=== PATIENT | male | born 1965 | race Caucasian/White ===

== ENCOUNTER 2022-07-27 21:17 | Emergency (ER) | payer BC, OTHER ==
[2022-07-27] MEDS ORDERED: XYLOCAINE 1% HCL 20 ML MDV ONE (21:31)
[2022-07-27 21:45] VITALS: BP 152/84; PULSE 81
[2022-07-27 21:47] VITALS: O2SAT 96
--- NOTE | 2022-07-27 21:47 | ERPHSYRPT ---
- History of Present Illness Time Seen by Provider: 07/27/22 21:17 Source: patient Exam Limitations: no limitations Physician History: 57-year-old right-handed dominant male presented in the ER with chief complaint of laceration right index finger while fixing copper tubing at home. Complaining of dull aching to sharp mild to moderate pain with movement. There was bleeding initially but stopped with applying pressure. No numbness tingling or difficulty movements at interphalangeal joint. Timing/Duration: other ([employer]) Quality: painful Severity: mild Location: hands Possible Causes: other Associated Symptoms: denies symptoms Allergies/Adverse Reactions: No Known Drug Allergies Allergy (Verified 07/27/22 21:33) Home Medications: Adalimumab [Humira] 40 mg SQ WEEKLY 05/16/14 [History] metHOTREXate sodium [Trexall] 30 mg PO WEEKLY 05/16/14 [History] - Review of Systems Constitutional: No Symptoms Eyes: No Symptoms Respiratory: No Symptoms Cardiac: No Symptoms Musculoskeletal: Injury Skin: Skin Lesions Neurological: No Symptoms Psychological: No Symptoms Endocrine: No Symptoms Hematologic/Lymphatic: No Symptoms - Past Medical History Pertinent Past Medical History: Yes Neurological History: No Pertinent History ENT History: No Pertinent History Cardiac History: No Pertinent History Respiratory History: No Pertinent History Endocrine Medical History: No Pertinent History Musculoskeletal History: Rheumatoid Arthritis, Other (FX L FEMUR) GI Medical History: No Pertinent History History: Other (KIDNEY STONE) Psycho-Social History: No Pertinent History Male Reproductive Disorders: No Pertinent History Other Medical History: rheumatoid arthritis - Past Surgical History Past Surgical History: Yes ( ABOVE,KIDNEY STONE,L FEMUR ) - Social History Smoking Status: Never smoker Exposure to second hand smoke: No Drug Use: none Patient Lives Alone: No - Physical Exam General Appearance: no apparent distress, alert Eye Exam: PERRL/EOMI Ears, Nose, Throat Exam: normal ENT inspection Neck Exam: normal inspection, full range of motion Respiratory Exam: lungs clear Cardiovascular Exam: regular rate/rhythm, normal heart sounds Extremity Exam: other (2.5 cm oblique laceration right index proximal interphalangeal joint area. Intact extension, abduction, abduction at index. Cap refill less than 3 seconds.) Neurologic Exam: alert, oriented x 3, cooperative Skin Exam: normal color SpO2 Interpretation: normal SpO2: 96 O2 Delivery: Room Air Procedures - Laceration/Wound Repair Right Finger Time of Procedure: 21:45 Wound Location: Right, hand Wound Length (cm): 2.5 Wound's Depth, Shape: into muscle Wound Explored: clean Irrigated: Yes Hibiclens Prep: Yes Anesthesia: 1% Lidocaine Volume Anesthetic (ccs): 3 Wound Repaired With: sutures Suture Size/Type: 4-0, nylon Number of Sutures: 4 Layer Closure?: No Sterile Dressing Applied?: Yes Splint Applied?: Yes Type of Splint Applied: Aluminum Ordered Tests: Medication Summary Discontinued Medications Generic Name Dose Route Start Last Admin Trade Name Sonido PRN Reason Stop Dose Admin Lidocaine HCl Confirm 07/27/22 21:31 Lidocaine Hcl 1% 20 Ml Mdv 20 Ml Ml Administered 07/27/22 21:32 Dose 10 ml .ROUTE .Riskclick ONE - Progress Progress: improved Progress Note: 07/27/22 21:46 Laceration was repaired. Intact range of motion. No bony tenderness. Outpatient follow-up. Counseled pt/family regarding: diagnosis, need for follow-up - Departure Departure Disposition: Home Clinical Impression: Finger laceration Condition: Stable Critical Care Time: No Referrals: JOSE MONTOYA [Primary Care Provider] - Follow Up with PCP/3 days Instructions: Laceration Repair With Stitches (DC), Surgical Wound (DC) Additional Instructions: Take Tylenol/ibuprofen as needed for pain. Follow-up with primary care for reevaluation. Avoid exertional work. Return to ER for increasing pain swelling redness discharge/fever chills etc.
[2022-07-27] MEDS ORDERED: BACIGUENT PACKET TP ONE (21:58)
[2022-07-27] MEDS ORDERED: XYLOCAINE 1% HCL 20 ML MDV IJ ONE (21:58)
[2022-07-27] MEDS ORDERED: BACIGUENT PACKET ONE (22:03)
== END 2022-07-27 22:07 | disposition home or self-care (01) ==
LOC: ED 21:17
DX: S61.210A Laceration without foreign body of right index finger without damage to nail, initial encounter (principal); W45.8XXA Other foreign body or object entering through skin, initial encounter; Y93.E9 Activity, other interior property and clothing maintenance; Z79.899 Other long term (current) drug therapy
CPT/HCPCS: 12001; 96372; 99283; A9270-GY